=== PATIENT | male | born 1970 | race Caucasian/White ===

== ENCOUNTER → 2021-05-24 | Outpatient (CLI) | payer BC | LOC: CT 12:15 | DX: R22.1 Localized swelling, mass and lump, neck (principal); J32.3 Chronic sphenoidal sinusitis | CPT/HCPCS: 70491; Q9967 ==

== ENCOUNTER → 2022-04-18 | Outpatient (CLI) | payer BC | LOC: KOH-I 16:38 | DX: J12.81 Pneumonia due to SARS-associated coronavirus (principal) | CPT/HCPCS: 71046 ==